=== PATIENT | female | born 1960 | race Caucasian/White ===

== ENCOUNTER 2016-05-17 08:31 | Emergency (ER) | payer BC ==
--- NOTE | 2016-05-17 08:43 | Emergency Department Record ---
History of Present Illness - General Chief complaint: Weakness Stated complaint: WEAKNESS/WELL LIKE GOING PASSOUT Time Seen by Provider: 05/17/16 08:42 Source: Patient Mode of Arrival: EMS Limitations: No limitations - History of Present Illness Initial comments: The patient is here by EMS due to feeling weak and lightheaded while driving home from work. She had been over at a relatives house the last couple of days and was exposed to some children with a mild diarrheal illness. Today she woke up at 4:30 am like normal to go to work and felt well but soon after noticed some mild nausea and stomach irritation. She went to work and after arriving there noticed the stomach "gurgling" felt a little worse so she left work for home. While driving she began to feel slightly worse and felt weak and clammy. That feeling worsened so she called EMS. The patient at that time was found by EMS with a systolic BP of 90 and was feeling more lightheaded. After initiating an IV the patient felt better. She denied any CP, SOB, SUSHILA, CHAKRABORTY, AP or back pain with the weakness. Presently she feels 100% improved and her BP is much better with just a couple 100 CC's of IVF. The patient has had similar issues in the past with weaknes and lightheadedness and has been to the ER twice in the past 2 years for the same. MD Complaint: Generalized weakness Onset/Timin -: Hour(s) Location: Generalized Improves with: None Worsens with: None Associated Symptoms: Fever/chills, Loss of appetite, Nausea/vomiting - [place] Coma Scale Eye Response: (4) Open spontaneously Motor Response: (6) Obeys commands Verbal Response: (5) Oriented [place] Total: 15 - Related Data Home Medications Medication Instructions Recorded Confirmed Last Taken Albuterol Sulfate [Ventolin Hfa] 1 - 2 puff IH .EVERY 4-6 HOURS PRN 05/23/1408/28 Unknown Amlodipine Besylate [Norvasc] 10 mg PO DAILY 05/23/14 05/17/16 05/17/16 Fluticasone/Salmeterol 100/50 1 disk IH Q12H 05/23/14 05/17/16 Unknown [Advair 100/50] Ibuprofen [Motrin] 800 mg PO Q8H PRN 05/23/14 05/17/16 Unknown Lorazepam [Ativan] 1 mg PO Q8H PRN 05/23/14 05/17/16 Unknown Omeprazole [Prilosec] 40 mg PO DAILY 05/23/14 05/17/16 05/28/15 Aspirin [Aspirin EC] 81 mg PO DAILY 11/04/14 05/17/16 05/28/15 Fexofenadine HCl [Mary Allergy] 180 mg PO DAILY 11/04/14 05/17/16 05/28/15 Calcium Carbonate/Vitamin D3 1 each PO DAILY 05/17/16 05/17/16 Unknown [Calcium 600-Vit D3 800 Tablet] Cholecalciferol (Vitamin D3) 1,000 unit PO DAILY 05/17/16 05/17/16 Unknown [Vitamin D3] Multivitamin [Multi-Vitamin Daily] 1 each PO DAILY 05/17/16 05/17/16 Unknown Allergies Allergy/AdvReac Type Severity Reaction Status Date / Time No Known Drug Allergies Allergy Verified 05/17/16 08:44 Travel Screening - Travel/Exposure Within Last 30 Days Have you traveled within the last 30 days?: No Review of Systems Constitutional: Denies: Chills, Fever, Malaise Eyes: Denies: Eye discharge ENT: Denies: Congestion Respiratory: Denies: Cough, Dyspnea Cardiovascular: Denies: Arrhythmia, Chest pain Endocrine: Reports: Fatigue Gastrointestinal: Reports: Nausea. Denies: Abdominal pain, Diarrhea, Vomiting Musculoskeletal: Denies: Back pain Skin: Denies: Bruising Past Medical History - SOCIAL HISTORY Smoking Status: Never smoker Alcohol Use: None Drug Use: None - RESPIRATORY Hx Respiratory Disorders: Yes Hx Asthma: Yes (well controlled) - CARDIOVASCULAR Hx Cardio Disorders: Yes Hx Deep Vein Thrombosis: Yes (Left calf 2004) Hx Hypertension: Yes - NEURO Hx Neuro Disorders: No - GI Hx GI Disorders: Yes Hx Reflux: Yes Hx Rectal Bleeding: Yes - Hx Genitourinary Disorders: No - ENDOCRINE Hx Endocrine Disorders: Yes Hx Diabetes: Yes (borderline low sugar) - MUSCULOSKELETAL Hx Musculoskeletal Disorders: Yes Hx Arthritis: Yes (bilat hands) - PSYCH Hx Psych Problems: No - HEMATOLOGY/ONCOLOGY Hx Hematology/Oncology Disorders: Yes Hx Cancer: Yes (melanoma-L calf) Hx Chemotherapy: No Hx Radiation Therapy: No Comment:: 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 negative: Tonsillar erythema, Tonsillar exudate - Neck Neck exam: Normal inspection, Full ROM. negative: Tenderness - Respiratory Respiratory exam: Normal lung sounds bilaterally. negative: Respiratory distress - Cardiovascular Cardiovascular Exam: Regular rate, Normal rhythm, Normal heart sounds - GI/Abdominal GI/Abdominal exam: Soft, Normal bowel sounds. negative: Guarding, Rebound, Rigid, Tenderness - Extremities Extremities exam: Normal inspection, Full ROM, Normal capillary refill. negative: Tenderness - Neurological Neurological exam: Alert, Normal gait (Neg Ataxia.), Oriented X3. negative: Abnormal gait, Altered, Motor sensory deficit - Psychiatric Psychiatric exam: negative: Anxious, Depressed - Skin Skin exam: negative: Rash Course Vital Signs 05/17/16 08:34 Temperature 98.2 F Pulse Rate 79 Respiratory 18 Rate Blood Pressure 105/80 Pulse Ox 100 - Reevaluation(s) Reevaluation #1: The patient is doing very well. She denies any pain or discomfort. She is up ambulating normally. 05/17/16 09:46 Reevaluation #2: The patient is doing very well at this time. She denies any weakness, dizziness or lightheadedness. She is up walking normally. I did explain to her that her lab tests and orthostatic BP measurements are WNL. She is to monitor her BP twice a day and to hold her Norvasc for now and to discuss the issues with her PCP at her appointment in 2 weeks. 05/17/16 10:30 Medical Decision Making - Data Complexity MDM Data: Labs Ordered and/or Reviewed, EKG Ordered and/or Reviewed - Lab Data Result diagrams: 05/17/16 08:20 05/17/16 08:20 - EKG Data -: EKG Interpreted by Me EKG: No Acute Changes, Normal EKG Disposition Disposition: Discharge Clinical Impression: Lightheadedness Disposition: Home, Self-Care Condition: (1) Good Instructions: Weakness (ED) Additional Instructions: Please drink plenty of fluids. Please see your PCP in 2 weeks as planned and monitor your BP. Do not take your Norvasc unless your BP starts running high. Return to the ER for any pain, fever, vomiting or diarrhea. Forms: Patient Portal Access Time of Disposition: 10:25
[2016-05-17] MEDS ORDERED: 0.9 % SODIUM CHLORIDE 1,000 ML BAG IV ONE ×2 (08:58→09:46)
[2016-05-17 09:08] LABS: HEMATOCRIT 39.1 % (35.0-47.0); HEMOGLOBIN 13.2 gm/dl (11.6-16.0); MEAN CELL VOLUME 92.7 fl (81-97); MEAN CORPUSCULAR HEMOGLOBIN 31.3 pg (27-33); MEAN CORPUSCULAR HGB CONC 33.8 g/dl (32-36); MEAN PLATELET VOLUME 9.5 fl (7.4-10.4); PLATELET COUNT 335 K/uL (130-400); RED BLOOD COUNT 4.22 M/uL (3.80-5.40); RED CELL DISTRIBUTION WIDTH 13.7 % (11.5-14.5); WHITE BLOOD COUNT W/O DIFF 8.5 K/uL (4.2-12.2)
[2016-05-17 09:17] LABS: URINE APPEARANCE CLEAR; URINE BILIRUBIN NEGATIVE (NEGATIVE); URINE BLOOD NEGATIVE (NEGATIVE); URINE COLOR YELLOW; URINE GLUCOSE (UA) NEGATIVE (NEGATIVE); URINE KETONE NEGATIVE (NEGATIVE); URINE LEUKOCYTE ESTERASE NEGATIVE (NEGATIVE); URINE NITRITE NEGATIVE (NEGATIVE); URINE PROTEIN NEGATIVE (NEGATIVE); URINE UROBILINOGEN 0.2 E.U./dL (0.20 - 1.00)
[2016-05-17 09:20] LABS: PLATELET ESTIMATE NORMAL (NORMAL)
[2016-05-17 09:22] LABS: ALB/GLOB RATIO 1.5 (1.1-1.8); ALBUMIN 4.4 gm/dL (3.5-5.0); ALKALINE PHOSPHATASE 75 U/L (38-126); ALT/SGPT 30 U/L (9-52); ANION GAP 12.1 (7-16); AST/SGOT 21 U/L (14-36); BILIRUBIN,TOTAL 0.61 mg/dL (0.2-1.3); BLOOD UREA NITROGEN 18 mg/dL (7-17); CARBON DIOXIDE 23.9 mmol/L (22-30); CREATINE PHOSPHOKINASE 81 U/L (30-135); CREATININE 0.8 mg/dL (0.52-1.04); EST GLOMERULAR FILTRATION RATE > 60 ml/min; GLUCOSE,RANDOM 118 mg/dL (70-110); TOTAL PROTEIN 7.3 gm/dL (6.3-8.2)
[2016-05-17 09:32] LABS: CKMB 1.2 ug/L (0-6)
[2016-05-17 09:39] LABS: TROPONIN I < 0.012 ng/mL (0.00-0.034)
== END 2016-05-17 10:39 | disposition home or self-care (01) ==
LOC: ER 08:31
DX: R42 Dizziness and giddiness (principal); R53.1 Weakness; R11.2 Nausea with vomiting, unspecified; I10 Essential (primary) hypertension
CPT/HCPCS: 80053; 81003; 82550; 82553; 84484; 85027; 93005; 93010; 96360; 99284; J7030

== ENCOUNTER 2017-02-05 21:26 | Emergency (ER) | payer BC ==
[2017-02-05] MEDS ORDERED: 0.9 % SODIUM CHLORIDE 1,000 ML BAG IV ONE (21:32)
[2017-02-05 21:55] LABS: HEMATOCRIT 37.7 % (35.0-47.0); HEMOGLOBIN 12.6 gm/dl (11.6-16.0); MEAN CELL VOLUME 93.1 fl (81-97); MEAN CORPUSCULAR HEMOGLOBIN 31.1 pg (27-33); MEAN CORPUSCULAR HGB CONC 33.4 g/dl (32-36); PLATELET COUNT 310 K/uL (130-400); RED BLOOD COUNT 4.05 M/uL (3.80-5.40); RED CELL DISTRIBUTION WIDTH 13.1 % (11.5-14.5); WHITE BLOOD COUNT W/O DIFF 7.8 K/uL (4.2-12.2)
[2017-02-05 22:09] LABS: BLOOD UREA NITROGEN 8 mg/dL (6-20); CREATININE 0.7 mg/dL (0.5-0.9); EST GLOMERULAR FILTRATION RATE > 60 mL/min
[2017-02-05 22:12] LABS: GLUCOSE,RANDOM 151 mg/dL (74-109)
[2017-02-05 22:15] LABS: ALB/GLOB RATIO 1.4 (1.1-1.8); ALBUMIN 4.1 g/dL (4.0-5.0); ALKALINE PHOSPHATASE 72 U/L (35-104); ALT/SGPT 16 U/L (<33); AST/SGOT 23 U/L (10.0-35.0); LIPASE 27 U/L (13-60)
--- NOTE | 2017-02-05 22:19 | Emergency Department Record ---
History of Present Illness - General Chief Complaint: Abdominal Pain Stated Complaint: ABD PAIN/HYPOTENSION Time Seen by Provider: 02/05/17 21:32 Source: Patient, Family, EMS Mode of Arrival: Ambulatory Limitations: No limitations - History of Present Illness Initial Comments: pt was not feeling well today w pain in her stomach and sweats and chills. she then had increased pain and a near syncopal spell w diaphoresis. this has happened to her multiple times in the past where she has abd pain and then near syncope w hypotension and diaphoresis. paramedics found her bp to be 80/ MD Complaint: Abdominal pain Onset/Timin -: Days(s) Location: Epigastric Radiation: LUQ, RUQ Migration to: Periumbilical Severity: Mild Consistency: Constant, Getting worse Improves With: Nothing Worsens With: Nothing Associated Symptoms: Syncope - Related Data LMP (females 10-50): other Hx Age of Menopause: 55 Home Medications Medication Instructions Recorded Confirmed Last Taken Hyoscyamine Sulfate [Levsin] 0.125 mg PO ASDIR 02/05/17 02/05/17 Unknown Previous Rx's Medication Instructions Recorded Dicyclomine HCl [Bentyl] 10 mg PO Q8H #10 cap 02/06/17 Allergies Allergy/AdvReac Type Severity Reaction Status Date / Time No Known Drug Allergies Allergy Verified 05/17/16 08:44 Travel Screening - Travel/Exposure Within Last 30 Days Have you traveled within the last 30 days?: No - Travel/Exposure Within Last Year Have you traveled outside the [place] in the last year?: No - Additonal Travel Details Have you been exposed to anyone with a communicable illness?: No - Travel Symptoms Symptom Screening: None Review of Systems Reviewed: No additional complaints except as noted below Constitutional: Reports: As per HPI. Denies: Chills, Fever, Malaise, Night sweats, Weakness, Weight change Eyes: Reports: As per HPI. Denies: Eye discharge, Eye pain, Photophobia, Vision change ENT: Reports: As per HPI. Denies: Congestion, Dental pain, Ear pain, Epistaxis , Hearing loss, Throat pain Respiratory: Reports: As per HPI. Denies: Cough, Dyspnea, Hemoptysis, Stridor, Wheezes Cardiovascular: Reports: As per HPI. Denies: Arrhythmia, Chest pain, Dyspnea on exertion, Edema, Murmurs, Orthopnea, Palpitations, Paroxysmal nocturnal dyspnea, Rheumatic Fever, Syncope Endocrine: Reports: As per HPI. Denies: Fatigue, Heat or cold intolerance, Polydipsia, Polyuria Gastrointestinal: Reports: As per HPI. Denies: Abdominal pain, Constipation, Diarrhea, Hematemesis, Hematochezia, Melena, Nausea, Vomiting Genitourinary: Reports: As per HPI. Denies: Abnormal menses, Discharge, Dyspareunia, Dysuria, Frequency, Hematuria, Incontinence, Retention, Urgency Musculoskeletal: Reports: As per HPI. Denies: Arthralgia, Back pain, Gout, Joint swelling, Myalgia, Neck pain Skin: Reports: As per HPI. Denies: Bruising, Change in color, Change in hair/ nails, Lesions, Pruritus, Rash Neurological: Reports: As per HPI. Denies: Abnormal gait, Confusion, Headache, Numbness, Paresthesias, Seizure, Tingling, Tremors, Vertigo, Weakness Psychiatric: Reports: As per HPI. Denies: Anxiety, Auditory hallucinations, Depression, Homicidal thoughts, Suicidal thoughts, Visual hallucinations Hematological/Lymphatic: Reports: As per HPI. Denies: Anemia, Blood Clots, Easy bleeding, Easy bruising, Swollen glands Past Medical History - SOCIAL HISTORY Smoking Status: Never smoker Alcohol Use: None Drug Use: None - RESPIRATORY Hx Respiratory Disorders: Yes Hx Asthma: Yes (well controlled) - CARDIOVASCULAR Hx Cardio Disorders: Yes Hx Deep Vein Thrombosis: Yes (Left calf 2004) Hx Hypertension: Yes - NEURO Hx Neuro Disorders: No - GI Hx GI Disorders: Yes Hx Reflux: Yes Hx Rectal Bleeding: Yes - Hx Genitourinary Disorders: No - ENDOCRINE Hx Endocrine Disorders: Yes Hx Diabetes: Yes (borderline low sugar) - MUSCULOSKELETAL Hx Musculoskeletal Disorders: Yes Hx Arthritis: Yes (bilat hands) - PSYCH Hx Psych Problems: No - HEMATOLOGY/ONCOLOGY Hx Hematology/Oncology Disorders: Yes Hx Cancer: Yes (melanoma-L calf) Hx Chemotherapy: No Hx Radiation Therapy: No Comment:: 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 negative: External canal tenderness Nasal Exam: Normal inspection. negative: Discharge, Sinus tenderness Mouth exam: Normal external inspection, Tongue normal Teeth exam: Normal inspection. negative: Dental caries Throat exam: Normal inspection. negative: Tonsillar erythema, Tonsillar exudate - Neck Neck exam: Normal inspection, Full ROM. negative: Tenderness - Respiratory Respiratory exam: Normal lung sounds bilaterally. negative: Respiratory distress - Cardiovascular Cardiovascular Exam: Regular rate, Normal rhythm, Normal heart sounds - GI/Abdominal GI/Abdominal exam: Soft, Normal bowel sounds. negative: Tenderness - Rectal Rectal exam: Deferred - exam: Deferred - Extremities Extremities exam: Normal inspection, Full ROM, Normal capillary refill. negative: Tenderness - Back Back exam: Reports: Normal inspection, Full ROM. Denies: Muscle spasm, Rash noted, Tenderness - Neurological Neurological exam: Alert, CN II-XII intact, Normal gait, Oriented X3 - Psychiatric Psychiatric exam: Normal affect, Normal mood - Skin Skin exam: Dry, Intact, Normal color, Warm Course Vital Signs 02/05/17 21:28 Temperature 98.2 F Pulse Rate 77 Respiratory 20 Rate Blood Pressure 125/82 Pulse Ox 99 - Reevaluation(s) Reevaluation #1: 02/06/17 01:51 pt feels better Reevaluation #2: 02/06/17 01:52 it was d/w pt that the multiple episodes she has had all appear to be significant vagal episodes connected to ap. pt was advised to lay down immediately w ap as she becomes this way very quickly. Medical Decision Making - Lab Data Result diagrams: 02/05/17 21:45 02/05/17 21:45 Lab Results 02/05/17 Range/Units 21:45 WBC 7.8 (4.2-12.2) K/uL RBC 4.05 (3.80-5.40) M/uL Hgb 12.6 (11.6-16.0) gm/dl Hct 37.7 (35.0-47.0) % MCV 93.1 (81-97) fl MCH 31.1 (27-33) pg MCHC 33.4 (32-36) g/dl RDW 13.1 (11.5-14.5) % Plt Count 310 (130-400) K/uL MPV 9.0 (7.4-10.4) fl Neutrophils % 81.0 H (47-80) % Eosinophils % Not Reportable Basophils % Not Reportable Lymphocytes 19.0 (16-45) % Monocytes 0.0 (0-9) % Disposition Disposition: Discharge Clinical Impression: Vasovagal near syncope Abdominal pain Qualifiers: Abdominal location: periumbilical Qualified Code(s): R10.33 - Periumbilical pain Disposition: Home, Self-Care Condition: (1) Good Instructions: Abdominal Pain (ED), Syncope (ED), Hypotension (ED) Additional Instructions: follow up with family doctor. return sooner if worse. have further evaluation of near syncopes Prescriptions: Dicyclomine HCl [Bentyl] 10 mg PO Q8H #10 cap Forms: Patient Portal Access Quality - Quality Measures Quality Measures: N/A - Blood Pressure Screening Does Patient Have Any of the Following: No Blood Pressure Classification: Pre-Hypertensive BP Reading Systolic Measurement: 125 Diastolic Measurement: 82 Screening for High Blood Pressure: < Pre-Hypertensive BP, F/U Documented > [ [id number]] Pre-Hypertensive Follow-up Interventions: Follow-up with rescreen every year.
[2017-02-05 22:32] LABS: URINE APPEARANCE CLEAR; URINE BILIRUBIN NEGATIVE (NEGATIVE); URINE BLOOD TRACE-I (NEGATIVE); URINE COLOR YELLOW; URINE GLUCOSE (UA) NEGATIVE (NEGATIVE); URINE KETONE NEGATIVE (NEGATIVE); URINE LEUKOCYTE ESTERASE NEGATIVE (NEGATIVE); URINE NITRITE NEGATIVE (NEGATIVE); URINE UROBILINOGEN 0.2 E.U./dL (0.20 - 1.00)
[2017-02-05 22:45] LABS: URINE WBC 0 - 2 (0-2/hpf)
[2017-02-05 22:46] LABS: URINE HYALINE CAST 0 - 5 /lpf
[2017-02-06 00:39] LABS: ROTOVIRUS NOT DETECTED (NOT DETECT)
[2017-02-06] MEDS ORDERED: DICYCLOMINE HCL 10 MG/ML AMPUL IM ONE (00:55)
[2017-02-06 00:56] LABS: CRYPTOSPORIDIUM PARVUM ANTIGEN NOT DETECTED (NOT DETECT); GIARDIA LAMBLIA ANTIGEN NOT DETECTED (NOT DETECT)
[2017-02-06 01:41] LABS: MOLECULAR C DIFF TOXIN SCREEN NOT DETECTED (NOT DETECT)
--- NOTE | 2017-02-07 07:35 | CT SCAN REPORT ---
EXAM: CT OF THE ABDOMEN AND PELVIS WITHOUT CONTRAST HISTORY: ABDOMINAL PAIN. TECHNIQUE: Sequential axial images were obtained from the diaphragms through the ischiorectal fossa without intravenous or oral contrast administration. FINDINGS: The visualized lung bases appear normal. Fluid filled distended stomach. Nonopacified liver, gallbladder, pancreas and spleen appear normal. The adrenal glands and kidneys appear normal. No CT findings suggestive of obstructive uropathy. The urinary bladder appears normal. The uterus and adnexal structures appear normal. The small bowel appears normal. The appendix is visualized and appears normal. No gross abnormalities within the colon. The osseous structures are grossly unremarkable. IMPRESSION: 1. THE APPENDIX IS VISUALIZED AND APPEARS NORMAL. 2. FLUID FILLED DISTENDED STOMACH. JOB NUMBER: [id number] MTDD
== END 2017-02-06 02:07 | disposition home or self-care (01) ==
LOC: ER 21:26
DX: R55 Syncope and collapse (principal); R10.33 Periumbilical pain; I10 Essential (primary) hypertension
CPT/HCPCS: 74176; 80053; 81001; 82272; 83690; 84443; 85027; 87329; 87425; 87427; 87493; 89055; 96372; 99283; 99284; J7030

== ENCOUNTER 2018-06-03 19:04 | Emergency (ER) | payer SELFPAY ==
[2018-06-03 20:08] LABS: URINE APPEARANCE CLEAR; URINE BILIRUBIN NEGATIVE (NEGATIVE); URINE BLOOD SMALL (NEGATIVE); URINE COLOR YELLOW; URINE GLUCOSE (UA) NEGATIVE (NEGATIVE); URINE KETONE NEGATIVE (NEGATIVE); URINE LEUKOCYTE ESTERASE NEGATIVE (NEGATIVE); URINE NITRITE NEGATIVE (NEGATIVE); URINE PROTEIN NEGATIVE (NEGATIVE); URINE UROBILINOGEN 0.2 E.U./dL (0.20 - 1.00)
[2018-06-03 20:11] LABS: URINE BACTERIA NONE SEEN; URINE EPITHELIAL CELLS 0 - 2 (FEW); URINE WBC 0 - 2 (0-2/hpf)
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
== END 2018-06-03 20:58 | disposition home or self-care (01) ==
LOC: ER 19:04
DX: H81.10 Benign paroxysmal vertigo, unspecified ear (principal); R11.0 Nausea; I10 Essential (primary) hypertension; V50.0XXA Driver of pick-up truck or van injured in collision with pedestrian or animal in nontraffic accident, initial encounter
CPT/HCPCS: 70450; 81001; 99283; 99284

== ENCOUNTER 2019-02-09 10:19 | Emergency (ER) | payer BC ==
[2019-02-09] MEDS ORDERED: 0.9 % SODIUM CHLORIDE 1,000 ML BAG IV ONE ×3 (10:44→11:51)
--- NOTE | 2019-02-09 10:54 | Emergency Department Record ---
History of Present Illness - General Chief Complaint: Syncope Stated Complaint: NEAR SYNCOPE/LOOSE STOOLS/WEAKNESS Time Seen by Provider: 02/09/19 10:39 Source: Patient, Family Mode of Arrival: Wheelchair Limitations: No limitations - History of Present Illness Initial Comments: The patient is here due to multiple episodes of loose watery stools since 1am today. Since the onset she has been weak and lightheaded and has had intermittent feelings that she may pass out. The patient has had no nausea, vomiting, AP or fevers. 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 The patient also has had Cdiff diarrhea in the past but has not been on any Abx's recently. MD Complaint: [place] faint Onset/Timin -: Hour(s) Prodromal Symptoms: Other Current Symptoms: Other History: Previous syncopal episode Treatments Prior to Arrival: None - Related Data Previous Rx's Medication Instructions Recorded Ondansetron [Zofran Odt] 4 mg SL .Q4-6H PRN #12 tab.rapdis 02/09/19 Allergies Allergy/AdvReac Type Severity Reaction Status Date / Time No Known Drug Allergies Allergy Verified 05/17/16 08:44 Travel Screening - Travel/Exposure Within Last 30 Days Have you traveled within the last 30 days?: No Review of Systems Constitutional: Denies: Chills, Fever Eyes: Denies: Eye discharge ENT: Denies: Congestion Respiratory: Denies: Cough Cardiovascular: Denies: Arrhythmia, Chest pain Endocrine: Reports: Fatigue Gastrointestinal: Reports: Diarrhea. Denies: Nausea, Vomiting Genitourinary: Denies: Dysuria Musculoskeletal: Denies: Arthralgia Past Medical History - SOCIAL HISTORY Smoking Status: Never smoker - RESPIRATORY Hx Respiratory Disorders: Yes Hx Asthma: Yes (well controlled) - CARDIOVASCULAR Hx Cardio Disorders: Yes Hx Deep Vein Thrombosis: Yes (Left calf 2004) Hx Hypertension: Yes - NEURO Hx Neuro Disorders: No - GI Hx GI Disorders: Yes Hx Reflux: Yes Hx Rectal Bleeding: Yes Comment:: hx cdiff - Hx Genitourinary Disorders: No - ENDOCRINE Hx Endocrine Disorders: Yes Hx Diabetes: Yes (borderline low sugar) - MUSCULOSKELETAL Hx Musculoskeletal Disorders: Yes Hx Arthritis: Yes (bilat hands) - PSYCH Hx Psych Problems: No - HEMATOLOGY/ONCOLOGY Hx Hematology/Oncology Disorders: Yes Hx Cancer: Yes (melanoma-L calf) Hx Chemotherapy: No Hx Radiation Therapy: No Comment:: 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 negative: Tonsillar erythema, Tonsillar exudate - Neck Neck exam: Normal inspection, Full ROM. negative: Tenderness - Respiratory Respiratory exam: Normal lung sounds bilaterally. negative: Respiratory distress - Cardiovascular Cardiovascular Exam: Regular rate, Normal rhythm, Normal heart sounds - GI/Abdominal GI/Abdominal exam: Soft, Normal bowel sounds. negative: Rebound, Rigid, Tenderness - Extremities Extremities exam: Normal inspection, Full ROM, Normal capillary refill. negative: Tenderness - Back Back exam: Reports: Normal inspection - Neurological Neurological exam: Alert, Normal gait. negative: Abnormal gait, Motor sensory deficit - Skin Skin exam: negative: Rash Course Vital Signs 02/09/19 10:33 Temperature 98.5 F Pulse Rate 65 Respiratory 20 Rate Blood Pressure 96/57 Pulse Ox 100 - Reevaluation(s) Reevaluation #1: The patient is doing a lot better at this time. She is up walking with no dizziness or lightheadedness and denies any AP or fevers. She is feeling ready for home. 02/09/19 12:45 Medical Decision Making - Data Complexity MDM Data: Labs Ordered and/or Reviewed, EKG Ordered and/or Reviewed - Lab Data Result diagrams: 02/09/19 10:40 02/09/19 10:40 - EKG Data -: EKG Interpreted by Me EKG: No Acute Changes, Normal EKG, Unchanged From Previous Disposition Disposition: Discharge Clinical Impression: Diarrhea Qualifiers: Diarrhea type: unspecified type Qualified Code(s): R19.7 - Diarrhea, unspecified Disposition: Home, Self-Care Condition: (2) Stable Instructions: Dehydration (ED) Additional Instructions: Please drink plenty of fluids and eat a very bland diet. Please use the Zofran if needed and do not take your BP medicine today. Please return to the ER for any worsening symptoms, any abdominal pain, fever, or blood in the stool. Prescriptions: Ondansetron [Zofran Odt] 4 mg SL .Q4-6H PRN #12 tab.rapdis PRN Reason: Nausea Forms: Patient Portal Access Time of Disposition: 12:50 Quality - Quality Measures Quality Measures: N/A - Blood Pressure Screening View Details: Yes Does Patient Have Any of the Following: No Blood Pressure Classification: Normal BP Reading Systolic Measurement: 96 Diastolic Measurement: 57 Screening for High Blood Pressure: < Normal BP, F/U Not Required > [[id number]]
[2019-02-09 10:55] LABS: HEMATOCRIT 39.1 % (35.0-47.0); HEMOGLOBIN 13.1 gm/dl (11.6-16.0); MEAN CELL VOLUME 95.1 fl (81-97); MEAN CORPUSCULAR HEMOGLOBIN 31.9 pg (27-33); MEAN CORPUSCULAR HGB CONC 33.5 g/dl (32-36); MEAN PLATELET VOLUME 9.3 fl (7.4-10.4); PLATELET COUNT 294 K/uL (130-400); RED BLOOD COUNT 4.11 M/uL (3.80-5.40); RED CELL DISTRIBUTION WIDTH 13.3 % (11.5-14.5)
[2019-02-09 11:03] LABS: BLOOD UREA NITROGEN 12 mg/dL (6-20); CREATININE 0.6 mg/dL (0.5-0.9); EST GLOMERULAR FILTRATION RATE > 60 mL/min
[2019-02-09 11:04] LABS: TOTAL PROTEIN 7.2 g/dL (6.6-8.7)
[2019-02-09 11:06] LABS: GLUCOSE,RANDOM 145 mg/dL (74-109)
[2019-02-09 11:09] LABS: ALB/GLOB RATIO 1.6 (1.1-1.8); ALBUMIN 4.4 g/dL (4.0-5.0); ALKALINE PHOSPHATASE 68 U/L (35-104); ALT/SGPT 14 U/L (<33); AST/SGOT 18 U/L (10.0-35.0); C-REACTIVE PROTEIN 0.88 mg/dL (<0.5)
[2019-02-09 11:10] LABS: STOOL FOR POLYS NO WBC'S OBSERVED (NO WBC'S)
[2019-02-09] MEDS ORDERED: ONDANSETRON HCL IV 4 MG/2 ML VIAL IVP ONE (12:38)
== END 2019-02-09 13:08 | disposition home or self-care (01) ==
LOC: ER 10:19
DX: R55 Syncope and collapse (principal); R19.7 Diarrhea, unspecified; I10 Essential (primary) hypertension; E11.9 Type 2 diabetes mellitus without complications
CPT/HCPCS: 80053; 85027; 86140; 87493; 89055; 96361; 96374; 99284; J2405; J7030